=== PATIENT | male | born 1955 | race Two or more races ===

== ENCOUNTER 2022-04-29 10:43 | Emergency (ER) | payer OTHER ==
[~2022-04-29] VITALS: Ht 167.6 cm; Wt 66.0 kg
[2022-04-29 10:52] VITALS: BP 184/84
[2022-04-29 11:46] LABS: BASOPHILS % (AUTO) 0.6 % (0.0-2.0); EOSINOPHILS % (AUTO) 5.9 % (1.0-6.0); HEMOGLOBIN 11.5 g/dL (13.5-17.5); LYMPHOCYTES # (AUTO) 1.5 K/uL (1.0-4.8); LYMPHOCYTES % (AUTO) 18.6 % (22.0-44.0); MEAN CORPUSCULAR HEMOGLOBIN 32.4 pg (26.0-34.0); MEAN CORPUSCULAR HGB CONC 32.9 G/dL (31.0-37.0); MEAN CORPUSCULAR VOLUME 98 fL (80-100); MONOCYTES # (AUTO) 0.6 K/uL (0.1-1.0); MONOCYTES % (AUTO) 7.8 % (2.0-9.0); NEUTROPHILS # (AUTO) 5.4 K/uL (1.8-7.7); NEUTROPHILS % (AUTO) 67.1 % (40.0-70.0); PLATELET COUNT (AUTO) 177 K/uL (150-450); RED BLOOD CELL COUNT(AUTO) 3.56 MIL/uL (4.50-5.90); RED CELL DISTRIBUTION WIDTH 14.3 % (11.5-14.5)
[2022-04-29 11:53] LABS: CALCIUM, TOTAL 8.5 mg/dL (8.8-10.5); CREATININE 9.72 mg/dL (0.60-1.30); POTASSIUM 5.4 mmol/L (3.5-5.1)
[2022-04-29 12:00] LABS: ALBUMIN 3.7 g/dL (3.4-5.0); BILIRUBIN,TOTAL 0.4 mg/dL (0.1-1.0)
[2022-04-29] MEDS ORDERED: SODIUM POLYSTYRENE SULFONATE 15 GM/60 ML SUSPENSION BOTTLE PO ONE (12:15)
== END 2022-04-29 12:50 | disposition home or self-care (01) ==
LOC: EMS 10:45
DX: E87.8 Other disorders of electrolyte and fluid balance, not elsewhere classified (principal); E11.9 Type 2 diabetes mellitus without complications; I10 Essential (primary) hypertension; H54.7 Unspecified visual loss; Z98.890 Other specified postprocedural states
CPT/HCPCS: 80053; 85025; 93005; 99284

== ENCOUNTER 2024-05-01 10:39 | Inpatient (IN) | payer OTHER, MEDICAID ==
[~2024-05-01] VITALS: Ht 167.6 cm; Wt 74.8 kg
[2024-05-01] MEDS ORDERED: IOHEXOL 350 MG/ML 100 ML VIAL ONE (11:16)
[2024-05-01] MEDS ORDERED: SODIUM CHLORIDE 0.9% 100 ML ONE (11:16)
[2024-05-01 11:46] LABS: BASOPHILS % (AUTO) 0.6 % (0.0-2.0); EOSINOPHILS % (AUTO) 8.1 % (1.0-6.0); HEMATOCRIT 40.2 % (41-53); HEMOGLOBIN 13.2 g/dL (13.5-17.5); LYMPHOCYTES # (AUTO) 1.5 K/uL (1.0-4.8); LYMPHOCYTES % (AUTO) 19.8 % (22.0-44.0); MEAN CORPUSCULAR HEMOGLOBIN 30.3 pg (26.0-34.0); MEAN CORPUSCULAR HGB CONC 32.7 G/dL (31.0-37.0); MEAN CORPUSCULAR VOLUME 93 fL (80-100); MONOCYTES # (AUTO) 0.7 K/uL (0.1-1.0); MONOCYTES % (AUTO) 8.9 % (2.0-9.0); NEUTROPHILS # (AUTO) 4.8 K/uL (1.8-7.7); NEUTROPHILS % (AUTO) 62.6 % (40.0-70.0); PLATELET COUNT (AUTO) 141 K/uL (150-450); RED BLOOD CELL COUNT(AUTO) 4.34 MIL/uL (4.50-5.90); RED CELL DISTRIBUTION WIDTH 17.4 % (11.5-14.5); WHITE BLOOD COUNT (AUTO) 7.7 K/uL (4.5-11.0)
[2024-05-01 11:58] LABS: CALCIUM, TOTAL 9.5 mg/dL (8.8-10.5); CREATININE 4.96 mg/dL (0.60-1.30)
[2024-05-01 12:00] LABS: PROTHROMBIN TIME 11.6 SEC (9.4-11.6)
[2024-05-01 12:23] LABS: ALBUMIN 3.5 g/dL (3.4-5.0); BILIRUBIN,TOTAL 0.3 mg/dL (0.1-1.0); CHOL/HDL RATIO 2.2 (4.2-7.3); TOTAL PROTEIN, SERUM 7.8 g/dL (6.4-8.2)
[2024-05-01 12:50] LABS: TROPONIN I-HIGH SENSITIVITY 35 ng/L (<76)
[2024-05-01] MEDS: ASPIRIN 81 MG CHEWABLE TABLET PO ONE (14:08)
[2024-05-01 17:19] LABS: TROPONIN I-HIGH SENSITIVITY 40 ng/L (<76)
[2024-05-01] MEDS ORDERED: HYDROCODONE/ACETAMINOPHEN 5-325 MG TABLET PO PRN (18:30)
[2024-05-01] MEDS ORDERED: MAGNESIUM HYDROXIDE SUSPENSION 30 ML UDCUP PO PRN (18:30)
[2024-05-01] MEDS ORDERED: BISACODYL 10 MG RECTAL RECTAL SUPPOSITORY PR PRN (18:30)
[2024-05-01] MEDS ORDERED: ACETAMINOPHEN 325 MG TABLET PO PRN (18:30)
[2024-05-01] MEDS ORDERED: ONDANSETRON HCL 4 MG/2 ML VIAL IVP PRN (18:30)
[2024-05-01] MEDS ORDERED: MORPHINE SULFATE 2 MG/ML SYRINGE IVP PRN (18:30)
[2024-05-01] MEDS ORDERED: ZOLPIDEM TARTRATE 5 MG TABLET PO PRN (18:30)
[2024-05-01 18:41] VITALS: BP 148/84; PULSE 78; RESP 16; TEMP 98.3; O2SAT 96
[2024-05-01 20:36] VITALS: BP 142/85; PULSE 80; RESP 18; TEMP 98.1; O2SAT 98
[2024-05-01] MEDS: ATORVASTATIN CALCIUM 40 MG TABLET PO SCH (21:30)
[2024-05-01] MEDS: DOCUSATE SODIUM 100 MG CAPSULE PO SCH (21:30)
[2024-05-01] MEDS: AmLODIPine BESYLATE 5 MG TABLET PO SCH (21:30)
[2024-05-01 23:48] LABS: TROPONIN I-HIGH SENSITIVITY 38 ng/L (<76)
[2024-05-02] MEDS: HEPARIN SODIUM,PORCINE 5,000 UNITS/ML VIAL SQ SCH
[2024-05-02 01:15] VITALS: BP 115/73; PULSE 70; RESP 18; TEMP 98; O2SAT 98
[2024-05-02 06:04] VITALS: BP 141/95; PULSE 80; RESP 18; TEMP 98.6; O2SAT 94
[2024-05-02 08:31] VITALS: BP 126/80; PULSE 82; RESP 19; TEMP 98.4; O2SAT 97
[2024-05-02 08:36] LABS: BASOPHILS % (AUTO) 0.7 % (0.0-2.0); EOSINOPHILS % (AUTO) 9.6 % (1.0-6.0); HEMATOCRIT 39.3 % (41-53); HEMOGLOBIN 12.6 g/dL (13.5-17.5); LYMPHOCYTES % (AUTO) 24.1 % (22.0-44.0); MEAN CORPUSCULAR HEMOGLOBIN 30.3 pg (26.0-34.0); MEAN CORPUSCULAR HGB CONC 32.1 G/dL (31.0-37.0); MEAN CORPUSCULAR VOLUME 94 fL (80-100); MONOCYTES # (AUTO) 0.8 K/uL (0.1-1.0); MONOCYTES % (AUTO) 9.3 % (2.0-9.0); NEUTROPHILS # (AUTO) 4.8 K/uL (1.8-7.7); NEUTROPHILS % (AUTO) 56.3 % (40.0-70.0); RED BLOOD CELL COUNT(AUTO) 4.17 MIL/uL (4.50-5.90); RED CELL DISTRIBUTION WIDTH 17.7 % (11.5-14.5); WHITE BLOOD COUNT (AUTO) 8.5 K/uL (4.5-11.0)
[2024-05-02 08:38] LABS: CALCIUM, TOTAL 9.4 mg/dL (8.8-10.5); CREATININE 6.94 mg/dL (0.60-1.30); POTASSIUM 4.7 mmol/L (3.5-5.1)
[2024-05-02] MEDS: CINACALCET HCL 30 MG TABLET PO SCH (08:40)
[2024-05-02] MEDS: ASPIRIN 81 MG CHEWABLE TABLET PO SCH (08:41)
[2024-05-02] MEDS: PANTOPRAZOLE SODIUM 40 MG DR TABLET PO SCH (08:45)
[2024-05-02 09:38] LABS: PLATELET COUNT (AUTO) 167 K/uL (150-450)
[2024-05-02 12:30] VITALS: BP 131/69; PULSE 75; RESP 16; TEMP 98.9; O2SAT 97
[2024-05-02 16:19] VITALS: BP 131/81; PULSE 85; RESP 17; TEMP 98.5; O2SAT 98
[2024-05-02 20:38] VITALS: BP 144/82; PULSE 87; RESP 19; TEMP 98.5; O2SAT 95
[2024-05-03] VITALS (15 sets, daily range): BP systolic 112–154; BP diastolic 64–85; PULSE 65–86; RESP 18; TEMP 97.1–98.3; O2SAT 95–97
[2024-05-03 07:35] LABS: BASOPHILS % (AUTO) 0.5 % (0.0-2.0); EOSINOPHILS % (AUTO) 9.1 % (1.0-6.0); HEMATOCRIT 36.8 % (41-53); LYMPHOCYTES % (AUTO) 23.5 % (22.0-44.0); MEAN CORPUSCULAR HEMOGLOBIN 30.4 pg (26.0-34.0); MEAN CORPUSCULAR HGB CONC 32.7 G/dL (31.0-37.0); MEAN CORPUSCULAR VOLUME 93 fL (80-100); MONOCYTES # (AUTO) 0.7 K/uL (0.1-1.0); MONOCYTES % (AUTO) 8.3 % (2.0-9.0); NEUTROPHILS # (AUTO) 5.1 K/uL (1.8-7.7); NEUTROPHILS % (AUTO) 58.6 % (40.0-70.0); PLATELET COUNT (AUTO) 155 K/uL (150-450); RED BLOOD CELL COUNT(AUTO) 3.96 MIL/uL (4.50-5.90); RED CELL DISTRIBUTION WIDTH 17.6 % (11.5-14.5); WHITE BLOOD COUNT (AUTO) 8.7 K/uL (4.5-11.0)
[2024-05-03 08:02] LABS: CALCIUM, TOTAL 9.1 mg/dL (8.8-10.5); CREATININE 9.23 mg/dL (0.60-1.30); POTASSIUM 4.8 mmol/L (3.5-5.1)
[2024-05-03] MEDS ORDERED: BACI1CAP6 PO (11:50)
[2024-05-03] MEDS ORDERED: DOXY50 PO (11:50)
[2024-05-03] MEDS ORDERED: ATOR20TA65 PO (11:50)
[2024-05-03] MEDS ORDERED: FOLI0.8T54 PO (11:50)
[2024-05-03] MEDS ORDERED: SENN-376 PO (11:50)
[2024-05-03] MEDS ORDERED: SUCR500T PO (11:50)
[2024-05-03] MEDS ORDERED: TRAM50TA5 PO (11:50)
[2024-05-03] MEDS ORDERED: AMLO5TAB4 PO (11:50)
[2024-05-03] MEDS ORDERED: VALS40TA11 PO (11:50)
[2024-05-03] MEDS ORDERED: ASPI81TA87 PO (11:50)
[2024-05-03] MEDS ORDERED: CINA60TA4 PO (11:50)
[2024-05-03] MEDS ORDERED: LACT1CAP70 PO (11:50)
[2024-05-03] MEDS ORDERED: CHOL200074 PO (11:50)
[2024-05-03] MEDS: HEPARIN SODIUM,PORCINE 1,000 UNITS/ML VIAL IVP PRN ×2 (13:56)
[2024-05-03] MEDS ORDERED: ATOR40TA71 PO (14:22)
[2024-05-03] MEDS ORDERED: HEPARIN SODIUM,PORCINE 1,000 UNITS/ML VIAL IVP ONE (16:59)
== END 2024-05-03 17:00 | disposition home or self-care (01) | DRG 913 ==
LOC: EMS 10:52 → EDH 16:07 → 5S 17:49
PROVIDERS: ADMIT Internal Medicine; ATTEND Internal Medicine
PROC: 5A1D70Z Performance of Urinary Filtration, Intermittent, Less than 6 Hours Per Day (ICD-10-PCS; principal; 2024-05-03)
DX: S09.8XXA Other specified injuries of head, initial encounter (principal); N18.6 End stage renal disease; I12.0 Hypertensive chronic kidney disease with stage 5 chronic kidney disease or end stage renal disease; I16.0 Hypertensive urgency; E11.22 Type 2 diabetes mellitus with diabetic chronic kidney disease; E11.51 Type 2 diabetes mellitus with diabetic peripheral angiopathy without gangrene; E78.5 Hyperlipidemia, unspecified; H54.8 Legal blindness, as defined in USA; K59.00 Constipation, unspecified; Z79.82 Long term (current) use of aspirin; Z99.2 Dependence on renal dialysis; Y93.89 Activity, other specified; Y99.8 Other external cause status; W19.XXXA Unspecified fall, initial encounter; Y92.009 Unspecified place in unspecified non-institutional (private) residence as the place of occurrence of the external cause
CPT/HCPCS: 70496; 70498; 71045; 72125; 80048; 80053; 80061; 82948; 84484; 85025; 85610; 85730; 86850; 86900; 86901; 87340; 90935; 93005; 93306; 93880; 97116; 97162; 99285; J1644; J7050; 36415-L1; 36415-TC; 70450; 70450-TC